=== PATIENT | female | born 1980 | race Caucasian/White ===

== ENCOUNTER 2018-09-19 08:22 | Emergency (ER) | payer BC ==
[~2018-09-19] VITALS: Ht 177.8 cm; Wt 122.5 kg
[2018-09-19] MEDS ORDERED: LASIX 20 MG TAB20 MG PO (08:26)
[2018-09-19] MEDS ORDERED: PRINIVIL20 MG PO (08:27)
[2018-09-19] MEDS ORDERED: ZYRTEC10 M5 PO (08:28)
[2018-09-19] MEDS ORDERED: NIFEDIPINE ER30 M1 PO (08:28)
[2018-09-19] MEDS ORDERED: TOPROL XL100 MG PO (08:28)
[2018-09-19] MEDS ORDERED: IBUPROFEN 400400 M2 PO (09:30)
[2018-09-19] MEDS ORDERED: FLEXERIL PO (09:30)
[2018-09-19 09:55] VITALS: BP 181/95
== END 2018-09-19 10:00 | disposition home or self-care (01) ==
LOC: ER 08:22
DX: M54.2 Cervicalgia (principal); R51 Headache; V89.2XXA Person injured in unspecified motor-vehicle accident, traffic, initial encounter; Y93.89 Activity, other specified; Y92.89 Other specified places as the place of occurrence of the external cause; Y99.8 Other external cause status